=== PATIENT | female | born 2000 | race Caucasian/White ===

== ENCOUNTER 2021-01-01 15:45 | Emergency (ER) | payer MEDICAID, SELFPAY ==
[2021-01-01 15:51] VITALS: BP 120/79; PULSE 62; RESP 17; TEMP 37.1; O2SAT 99
--- NOTE | 2021-01-01 15:55 | W.ED.GENAD ---
Discharge Plan Disposition Patient Disposition: HOME Condition: Improving Discharge Details Clinical Impression: Abdominal pain, Abdominal wall strain Primary Care Provider: Unknown,Unknown ED Provider: Mackenzie Kenney Home Meds and New Rx's Prescriptions: No Action Unable to Obtain RF: 0 Discharge Instructions Instructions: Muscle Strain (ED), Abdominal Pain (ED) Additional Instructions: Drink plenty of fluids and get plenty of rest. Alternate ice and heat to the affected area(s) several times daily for 20 minutes at a time. Alternate tylenol and motrin as needed and directed for pain. Follow-up with your primary care doctor in 1 week and for referral to surgery if your GERD type symptoms or abdominal pain returns. Return to the emergency department with any worsening or new concerning symptoms. Referrals: Juli Mina DO [OSTEOPATHIC DOCTOR] - Discharge Data Discharge Physician: Mackenzie Kenney Medical Decision Making 20-year-old female with a history of appendectomy presents for nausea and right lower quadrant abdominal pain since earlier this morning. She states she had GERD type symptoms and indigestion late last night that is since resolved. Vitals within normal limits. Patient appears comfortable and nontoxic her abdomen is soft and tender in the right lower quadrant with deep palpation. She has no rigidity or guarding. Differential diagnosis includes abdominal wall strain, ovarian cyst or torsion, gastroenteritis, colitis, UTI, pyelonephritis,etc. She has no right upper quadrant tenderness to history and presentation does not appear consistent with cholelithiasis or cholecystitis. We will place an IV, obtain screening labs, urinalysis and pelvic ultrasound. We will give a dose of Toradol and Zofran and IV fluids and reassess. Labs and imaging reviewed. White blood cell count normal at 7. Potassium 3.4. Urinalysis notes 3-5 WBCs but rare bacteria, negative leukocyte esterase and negative nitrates. Pelvic ultrasound unremarkable. Patient feels much better and feels good to go home. She is instructed to take an [id number] H2 violetta or PPI for GERD symptoms. Instructed to alternate ice or heat, Tylenol and Motrin for her right sided abdominal wall muscle pain. Advised to follow up with the primary care doctor for re-evaluation. Usual and customary return precautions given prior to discharge. Medical Records Medical records reviewed: Yes I reviewed the patient's medical records. Imaging Data Radiologic Study: Radiologist's impression: US Pelvis, Transabdominal, Limited Exam date and time: 01/01/2021 4:22 PM Age: 20 years old Clinical indication: Other: Rlq pain; Prior surgery; Surgery date: 6+ months; Surgery type: Appendectomy 2 years ago TECHNIQUE: Imaging protocol: Real-time limited transabdominal pelvic ultrasound with image documentation. COMPARISON: No relevant prior studies available. FINDINGS: Uterus/cervix: The uterus is normal in size and echotexture. Right adnexa: Right ovary measures 2.6 x 2.4 x 1.7 cm. Doppler assessment reveals appropriate flow. Left adnexa: Left ovary measures 2.7 x 1.9 x 1.9 cm. Doppler assessment reveals appropriate flow. Intraperitoneal space: No free fluid. Other findings: No hydronephrosis. IMPRESSION: Unremarkable exam. Lab Data Lab results reviewed: Yes I reviewed the patient's lab results. Labs: Laboratory Tests Range/Units 01/01/21 01/01/21 01/01/21 16:50 16:50 16:55 WBC (4.4-10.8) 10^3/uL 7.13 RBC (3.93-5.22) 10^6/uL 4.23 Hgb (11.2-15.7) g/dL 12.7 Hct (36.0-46.0) % 36.5 MCV (80-95) fL 86.3 MCH (27.0-33.0) pg 30.0 MCHC (32.0-36.0) % 34.8 RDW (11.7-14.6) % 11.9 Plt Count (130-400) 10^3/uL 183 MPV (8.0-11.0) fL 12.0 H Immature Gran % 0.1 Neutrophils % 57.3 Lymphocytes % 34.8 Monocytes % 7.0 Eosinophils % 0.1 Basophils % 0.7 Nucleated RBC % % 0 Absolute Neutrophils (1.2-6.7) 10^3/uL 4.08 Absolute Lymphocytes (1.2-3.4) 10^3/uL 2.48 Absolute Monocytes (0.1-0.8) 10^3/uL 0.50 Absolute Eosinophils (0.0-0.7) 10^3/uL 0.01 Absolute Basophils (0.0-0.2) 10^3/uL 0.05 Sodium (136-145) mmol/L 139 Potassium (3.5-5.1) mmol/L 3.4 L Chloride (98-107) mmol/L 103 Carbon Dioxide (21.0-32.0) mmol/L 26.9 Anion Gap (3-11) mmol/L 9.1 BUN (7-18) mg/dL 6 L Creatinine (0.55-1.02) mg/dL 0.8 Estimated GFR/1.73 m2 (mL/min/1.73m2) >= 60.00 Glucose (74-106) mg/dL 83 Calcium (8.5-10.1) mg/dL 9.6 Total Bilirubin (0.2-1.0) mg/dL 0.6 AST (15-37) U/L 16 ALT (14-59) U/L 27 Alkaline Phosphatase (46-116) U/L 68 Total Protein (6.4-8.2) g/dL 8.3 H Albumin (3.4-5.0) g/dL 4.4 Urine Color (Yellow) Yellow Urine Clarity (Clear) Clear Urine pH (5-8) 6.0 Ur Specific Happy (1.005-1.025) 1.010 Urine Protein (Negative) mg/dL Negative Urine Ketones (Negative) mg/dL Negative Urine Blood (Negative) Trace-intact H Urine Nitrite (Negative) Negative Urine Bilirubin (Negative) Negative Urine Urobilinogen (Up TO 0.2) EU/dL 0.2 Ur Leukocyte Esterase (Negative) Negative Urine RBC (0-2) HPF Negative Urine WBC (0-5) HPF 3-5 Ur Epithelial Cells (Negative) HPF Few Urine Crystals (Negative) HPF Negative Urine Bacteria (Negative) HPF Rare Urine Casts (Negative) LPF Negative Urine Mucus (Negative) Negative Ur Culture Indicated? No Urine Glucose (Negative) mg/dL Negative HPI General Mode of arrival: ambulatory. Date/Time Provider Initiated Documentation: 01/01/21 15:55. Limitations to Documentation: no limitations. Information obtained by: patient. HPI Narrative: Patient is a 20-year-old female presents to the ED with a complaint of right-sided abdominal pain for the past 12 hours. Patient states the pain is mainly in her right lower quadrant and mainly occurs only with movement. She states the pain is currently 6/10. She states she went to bed last night with GERD type symptoms with indigestion, nausea, and acid taste in her mouth. She states the symptoms then resolved and then in the middle of the night developed right-sided abdominal pain. She denies any known injury, fever, vomiting, diarrhea or urinary symptoms. She states she has had for loose brown bowel movements today which is more than usual. She states she went to [facility] today for the same complaint and had a urine test which was negative, urinalysis which was negative for blood and told that she possibly could have a kidney stone and was discharged home and advised to increase fluids. Patient states she was not happy with the plan of treatment there and decided to come here for a second opinion. Related Data Home Medications Medication Instructions Recorded Confirmed Unknown [Unable to Obtain] 01/01/21 01/01/21 Allergies Allergy/AdvReac Type Severity Reaction Status Date / Time amoxicillin Allergy Intermediate Hives Unverified 01/01/21 15:57 Penicillins Allergy Intermediate Hives Unverified 01/01/21 15:57 Review of Systems All systems reviewed & are unremarkable except as noted in HPI and below Constitutional Constitutional: Reports as per HPI, Denies chills and Denies fever(s) Eyes Eyes: Denies blurry vision ENT Ears, Nose, Mouth, and Throat: Denies dizziness, Denies sore throat and Denies throat swelling Cardiovascular Cardiovascular: Denies chest pain and Denies dyspnea Respiratory Respiratory: Denies cough and Denies dyspnea Gastrointestinal Gastrointestinal: Reports abdominal pain, Denies diarrhea, Reports nausea and Denies vomiting Genitourinary Genitourinary: Denies hematuria and Denies dysuria Musculoskeletal Musculoskeletal: Denies back pain and Denies numbness Integumentary/Breasts Skin/Breast: Denies lesions and Denies rash Neurologic Neurologic: Denies dizziness, Denies localized weakness and Denies numbness Allergic/Immunologic Allergic/Immunologic: Denies throat swelling [facility] Medical History (Updated 01/01/21 @ 18:19 by Mackenzie Kenney DO) GERD (gastroesophageal reflux disease) Surgical History (Updated 01/01/21 @ 16:55 by Mackenzie Kenney DO) History of appendectomy History of tonsillectomy Social History Smoking/Tobacco Use Status: Never Smoking risk assessment performed?: Yes Alcohol Intake: current Alcohol Intake frequency: a few times a month Drug use: Daily Substance use type: marijuana Details: thc gummies and cbd gummies Do you feel safe at home: Yes Do you feel safe in your relationship?: Yes Exam Const General: cooperative, healthy appearing and no acute distress HENMT Head: normal to inspection Face and sinus: normal facial exam Eyes General: appearance normal, both eyes and all related structures EOM: EOM intact bilaterally Neck Neck: normal visual inspection and No submandibular swelling Lymphatic: no lymphadenopathy noted Chest Chest: normal inspection of the chest and no tenderness Resp Effort & Inspection: normal respiratory effort and able to speak in complete sentences Auscultation: clear to auscultation bilaterally Cardio Rate: regular rate Rhythm: regular rhythm GI Inspection: normal to inspection Palpation: soft, not firm, not rigid and tender in the RLQ Auscultation: hypoactive bowel sounds Skin General skin exam: no rashes or lesions noted Neuro General: patient alert, patient awake and patient oriented x3 Cognition: normal cognition Speech: speech normal Motor: muscle tone normal throughout Sensory Exam: no sensory deficits noted Extrem General: normal to inspection, full ROM, capillary refill normal, no calf tenderness bilaterally and no edema Psych Appearance: grossly normal Mental Status: mental status grossly normal Speech and Movement: speech and movement normal Affect: normal affect
--- NOTE | 2021-01-01 16:15 | DI.US_ITS ---
Exam(s) US PELVIS EXAM: US PELVIS CLINICAL HISTORY: RLQ abd pain, r/o ovarian torsion vs cyst TECHNIQUE: Transabdominal imaging was performed using standard protocol. COMPARISON: No exams were available for comparison FINDINGS: KIDNEYS: Kidneys are symmetric in size. No evidence of renal calculi. No evidence of hydronephrosis. No renal mass or cyst identified. UTERUS: Anteverted. 6.2 x 2.5 x 5 cm. Endometrium: 4 millimeters. Myometrium: Unremarkable. Cervix: Unremarkable. OVARIES: Right: Cyst or mass: None. Left: Cyst or mass: None. DOPPLER: Color: Symmetric and uniform flow to both ovaries. No hyperemia. Duplex: Normal ovarian arterial waveforms visualized. CUL-DE-SAC: Free fluid: None. IMPRESSION: 1. Normal-appearing uterus with endometrial stripe within normal limits. 2. Unremarkable bilateral ovaries. DATA REPOSITORY:
[2021-01-01] MEDS: Normal Saline Flush 10 ML SYR IVP (17:00)
[2021-01-01] MEDS: Ketorolac 30 MG/ML VIAL IVP (17:00)
[2021-01-01] MEDS: Normal Saline 1,000 ML 1000 ML IV (17:00)
[2021-01-01 17:02] LABS: Abs Immature Grans 0.01 10^3/uL (0.0-0.06); Absolute Basophil Count 0.05 10^3/uL (0.0-0.2); Absolute Eosinophil Count 0.01 10^3/uL (0.0-0.7); Absolute Lymphocyte Count 2.48 10^3/uL (1.2-3.4); Absolute Neutrophil Count 4.08 10^3/uL (1.2-6.7); Basophils % 0.7; Eosinophils % 0.1; HCT 36.5 % (36.0-46.0); HGB 12.7 g/dL (11.2-15.7); Immature Grans % 0.1; Lymphocytes % 34.8; MCHC 34.8 % (32.0-36.0); MCV 86.3 fL (80-95); Neutrophils % 57.3; Nucleated RBC 0 %; Platelet Count 183 10^3/uL (130-400); RBC 4.23 10^6/uL (3.93-5.22); RDW 11.9 % (11.7-14.6); RDW-SD 37.2 fL; WBC 7.13 10^3/uL (4.4-10.8)
[2021-01-01 17:09] LABS: ALT 27 U/L (14-59); AST 16 U/L (15-37); Albumin 4.4 g/dL (3.4-5.0); Alkaline Phosphatase 68 U/L (46-116); Anion Gap 9.1 mmol/L (3-11); BUN 6 mg/dL (7-18); Bilirubin, Total 0.6 mg/dL (0.2-1.0); CO2 26.9 mmol/L (21.0-32.0); CREATININE 0.8 mg/dL (0.55-1.02); Calcium 9.6 mg/dL (8.5-10.1); Chloride 103 mmol/L (98-107); Glucose 83 mg/dL (74-106); Potassium 3.4 mmol/L (3.5-5.1); Sodium 139 mmol/L (136-145); Total Protein 8.3 g/dL (6.4-8.2)
--- NOTE | 2021-01-01 17:10 | DI.VRAD_ITS ---
PROCEDURE INFORMATION: Exam: US Pelvis, Transabdominal, Limited Exam date and time: 01/01/2021 4:22 PM Age: 20 years old Clinical indication: Other: Rlq pain; Prior surgery; Surgery date: 6+ months; Surgery type: Appendectomy 2 years ago TECHNIQUE: Imaging protocol: Real-time limited transabdominal pelvic ultrasound with image documentation. COMPARISON: No relevant prior studies available. FINDINGS: Uterus/cervix: The uterus is normal in size and echotexture. Right adnexa: Right ovary measures 2.6 x 2.4 x 1.7 cm. Doppler assessment reveals appropriate flow. Left adnexa: Left ovary measures 2.7 x 1.9 x 1.9 cm. Doppler assessment reveals appropriate flow. Intraperitoneal space: No free fluid. Other findings: No hydronephrosis. IMPRESSION: Unremarkable exam. Dictated and Authenticated by: Jolene Worthington MD. Ordering:LIAN Mann MD
[2021-01-01 17:24] LABS: Bilirubin Negative (Negative); Blood Trace-intact (Negative); Clarity Clear (Clear); Glucose Negative (Negative); Ketones Negative (Negative); Leukocyte Esterase Negative (Negative); Nitrite Negative (Negative); Urobilinogen 0.2 EU/dL (Up TO 0.2)
[2021-01-01 17:33] LABS: Bacteria Rare HPF (Negative); C & S Indicated? No; Casts Negative LPF (Negative); Crystals Negative HPF (Negative); Epithelial Cells Few HPF (Negative); Mucus Negative (Negative); RBC Negative HPF (0-2)
[2021-01-01 18:26] VITALS: BP 107/64; PULSE 72; RESP 16; TEMP 36.7; O2SAT 99
== END 2021-01-01 17:33 | disposition home or self-care (01) ==
PROVIDERS: Emergency Provider Physician Assistant
DX: R10.31 Right lower quadrant pain (principal); S39.011A Strain of muscle, fascia and tendon of abdomen, initial encounter; X58.XXXA Exposure to other specified factors, initial encounter
CPT/HCPCS: 36415; 80053; 81025; 96361; 96374; 99284; 76856; 81003; 81015; 85025; J1885